=== PATIENT | female | born 1990 | race American Indian/Alaskan Native ===

== ENCOUNTER 2017-03-26 12:08 | Emergency (ER) | payer OTHER ==
[2017-03-26 16:33] VITALS: BP 146/74
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
== END 2017-03-26 18:34 | disposition home or self-care (01) ==
LOC: ED 12:08
DX: S06.0X9A Concussion with loss of consciousness of unspecified duration, initial encounter (principal); F12.10 Cannabis abuse, uncomplicated; F17.200 Nicotine dependence, unspecified, uncomplicated; V89.2XXA Person injured in unspecified motor-vehicle accident, traffic, initial encounter; Y93.9 Activity, unspecified; Y99.9 Unspecified external cause status; Y92.410 Unspecified street and highway as the place of occurrence of the external cause
CPT/HCPCS: 70450; 81025